=== PATIENT | male | born 1995 | race African-American/Black ===

== ENCOUNTER 2018-05-23 06:16 | Emergency (ER) | payer OTHER ==
[~2018-05-23] VITALS: Ht 170.2 cm; Wt 63.5 kg
[~2018-05-23 06:16] MED LIST: ALBUTEROL2.5 MG/31; PREDNISONE50 MG PO; PROAIR HFA8.5 GM IH; SINGULAIR
[2018-05-23] MEDS ORDERED: AMOXICILLIN500 M1 PO (07:26)
[2018-05-23] MEDS ORDERED: Magic Mouthwash PO (07:26)
[2018-05-23 07:58] VITALS: BP 118/71
== END 2018-05-23 08:00 | disposition home or self-care (01) ==
LOC: M.ERS 06:16
DX: J02.9 Acute pharyngitis, unspecified (principal); F17.200 Nicotine dependence, unspecified, uncomplicated; J45.909 Unspecified asthma, uncomplicated

== ENCOUNTER 2018-12-17 04:06 | Emergency (ER) | payer OTHER ==
[~2018-12-17] VITALS: Ht 170.2 cm; Wt 63.5 kg
[~2018-12-17 04:06] MED LIST changes: +AMOXICILLIN500 M1 PO; +Magic Mouthwash PO
[2018-12-17] MEDS ORDERED: MEDROLDOSEPACK PO (04:54)
[2018-12-17 05:38] VITALS: BP 108/72
== END 2018-12-17 05:38 | disposition home or self-care (01) ==
LOC: M.ERS 04:06
DX: J45.901 Unspecified asthma with (acute) exacerbation (principal)

== ENCOUNTER 2019-03-03 08:48 | Emergency (ER) | payer OTHER ==
[~2019-03-03] VITALS: Ht 170.2 cm; Wt 63.5 kg
[~2019-03-03 08:48] MED LIST changes: +MEDROLDOSEPACK PO
[2019-03-03 09:13] VITALS: BP 110/67
== END 2019-03-03 09:14 | disposition home or self-care (01) ==
LOC: M.ERS 08:48
DX: J06.9 Acute upper respiratory infection, unspecified (principal); J45.909 Unspecified asthma, uncomplicated

== ENCOUNTER 2019-04-09 05:04 | Emergency (ER) | payer OTHER ==
[~2019-04-09] VITALS: Ht 170.2 cm; Wt 63.5 kg
[2019-04-09] MEDS ORDERED: PREDNISONE50 MG PO (05:24)
[2019-04-09 05:35] LABS: INFLUENZA A ANTIGEN Negative (Negative); INFLUENZA B ANTIGEN Negative (Negative)
[2019-04-09 05:46] VITALS: BP 94/62
== END 2019-04-09 05:46 | disposition home or self-care (01) ==
LOC: M.ERS 05:04
PROVIDERS: Emergency Medicine
DX: J06.9 Acute upper respiratory infection, unspecified (principal); J45.909 Unspecified asthma, uncomplicated; F17.210 Nicotine dependence, cigarettes, uncomplicated

== ENCOUNTER 2019-04-11 09:10 | Emergency (ER) | payer OTHER ==
[~2019-04-11] VITALS: Ht 170.2 cm; Wt 63.5 kg
[2019-04-11 09:28] LABS: INFLUENZA A ANTIGEN Negative (Negative)
[2019-04-11] MEDS ORDERED: ALLEGRA-D 24 H1 EACH PO (09:59)
[2019-04-11] MEDS ORDERED: ALBUTEROL2.5 MG/3 M INH (09:59)
[2019-04-11 10:13] VITALS: BP 104/65
== END 2019-04-11 10:15 | disposition home or self-care (01) ==
LOC: M.ERS 09:10
PROVIDERS: Family Medicine
DX: J10.1 Influenza due to other identified influenza virus with other respiratory manifestations (principal); J45.909 Unspecified asthma, uncomplicated

== ENCOUNTER 2019-05-06 20:01 | Emergency (ER) | payer OTHER ==
[~2019-05-06] VITALS: Ht 170.2 cm; Wt 63.5 kg
[~2019-05-06 20:01] MED LIST changes: +ALBUTEROL2.5 MG/3 M INH; +ALLEGRA-D 24 H1 EACH PO
[2019-05-06] MEDS ORDERED: AMOXICILLIN 50500 MG PO (20:35)
[2019-05-06] MEDS ORDERED: IBU600 MG PO (20:35)
[2019-05-06 20:48] VITALS: BP 123/79
== END 2019-05-06 20:49 | disposition home or self-care (01) ==
LOC: M.ERS 20:01
DX: K02.9 Dental caries, unspecified (principal); J45.909 Unspecified asthma, uncomplicated; Z98.890 Other specified postprocedural states

== ENCOUNTER 2019-06-10 19:42 | Emergency (ER) | payer OTHER ==
[~2019-06-10] VITALS: Ht 170.2 cm; Wt 68.0 kg
[~2019-06-10 19:42] MED LIST changes: +AMOXICILLIN 50500 MG PO; +IBU600 MG PO
[2019-06-10 19:47] VITALS: BP 120/65
[2019-06-10] MEDS ORDERED: HYDROCODON-ACE1 EAC8 PO (20:14)
== END 2019-06-10 20:26 | disposition home or self-care (01) ==
LOC: M.ERS 19:42
DX: S02.5XXA Fracture of tooth (traumatic), initial encounter for closed fracture (principal); J45.909 Unspecified asthma, uncomplicated; X58.XXXA Exposure to other specified factors, initial encounter; Y93.89 Activity, other specified; Y92.89 Other specified places as the place of occurrence of the external cause; Y99.8 Other external cause status

== ENCOUNTER 2019-07-23 08:43 | Emergency (ER) | payer OTHER ==
[~2019-07-23] VITALS: Ht 170.2 cm; Wt 59.0 kg
[~2019-07-23 08:43] MED LIST changes: +HYDROCODON-ACE1 EAC8 PO
[2019-07-23] MEDS ORDERED: ALBUTEROL2.5 MG/0.1 INH (08:53)
[2019-07-23] MEDS ORDERED: FLAGYL500 M1 PO (08:57)
[2019-07-23 09:35] VITALS: BP 121/81
== END 2019-07-23 09:36 | disposition home or self-care (01) ==
LOC: M.ERS 08:43
DX: Z20.2 Contact with and (suspected) exposure to infections with a predominantly sexual mode of transmission (principal); J45.909 Unspecified asthma, uncomplicated